=== PATIENT | female | born 2000 | race Hispanic/Latino ===

== ENCOUNTER 2019-05-05 03:25 | Emergency (ER) | payer OTHER ==
[2019-05-05] MEDS ORDERED: ACETAMINOPHEN EXTRA STRENGTH 500 MG TABLET ONE (03:41)
[2019-05-05] MEDS ORDERED: IBUPROFEN 600 MG TABLET ONE (03:41)
== END 2019-05-05 04:39 | disposition home or self-care (01) ==
LOC: EDH 03:25
DX: J10.1 Influenza due to other identified influenza virus with other respiratory manifestations (principal)
CPT/HCPCS: 87804